=== PATIENT | female | born 1955 | race Caucasian/White ===

== ENCOUNTER 2020-08-14 23:07 | Emergency (ER) | payer OTHER, MEDICAID ==
[~2020-08-14] VITALS: Ht 165.1 cm; Wt 65.0 kg
[2020-08-15] MEDS ORDERED: ACETAMINOPHEN 500MG TABLET PO SCH (01:00)
[2020-08-15 01:55] VITALS: BP 125/62
== END 2020-08-15 02:06 | disposition home or self-care (01) ==
LOC: ER 23:07
DX: F41.9 Anxiety disorder, unspecified (principal); I10 Essential (primary) hypertension
CPT/HCPCS: 93005; 99283